=== PATIENT | female | born 1985 ===

== ENCOUNTER 2024-02-09 10:38 | Outpatient (AMB) | payer OTHER, SELFPAY ==
--- NOTE | 2024-02-09 10:48 | MHC.OFFVIS ---
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 She reports the pain is in the middle of her back, she denies any injury. She has completed physical therapy in the past, it did not help much. She has a daughter in law here named Aiyana who she would prefer to interpret. Red Mud Thickener Operator Required: Yes Red Mud Thickener Operator Services: Red Mud Thickener Operator Offered & Declined Allergies No Known Allergies Allergy (Verified 02/09/24 10:52) Medication List - Last Reconciled 02/09/24 by Betty Boswell, SALINA dapagliflozin propanediol (Farxiga) 5 mg PO DAILY metformin 1,000 mg PO BID metoprolol succinate ER 100 mg PO DAILY HPI Comments Details: Referred from [facility] for low back pain. History of CHF, diabetes, rheumatic mitral stenosis, fibroids. Lumbar x-ray essentially normal except for loss of lordosis. Here with daughter in law who helps with translation. After 4th child delivery, 2021, started having back pain. No back pain prior but had back pain during . Baby born CS 11 lbs, normal/healthy. Since then, would have pain daily, worse with walking. Middle of lower back, goes across, sometimes goes to left side as a cramp near the hip. Sometimes would feel heat/burning and numbness on the left side, with walking. No weakness. No bladder/bowel changes. Treatment done so far: cyclobenzaprine PT finished 3 months 2023 COUNT INCLUDES THE [facility] Medical History (Updated 02/09/24 @ 11:04 by Hina Glez MD) delivery delivered Surgical History (Updated 02/09/24 @ 10:52 by Betty Boswell RN) H/O tubal ligation Review of Systems Const All systems reviewed & are unremarkable except as noted in HPI and below Physical Exam Vital Signs: BMI result Body Mass Index 29.9 Constitutional: Patient appears to be in no acute distress, well nourished and well developed. Patient was appropriately conversant and oriented. Good historian. MSK: No specific abnormalities found on inspection of the spine and all extremities. No pain with palpation over the lumbar area. Right SI joint tender. Lumbar ROM was limited on extension due to pain. Bilateral hip, knee and ankle ROM WNL. No ligamentous laxity or crepitance. No increased effusion. Straight-leg raising test negative. FABERE test positive right sided back/SI joint pain. Gillet test show stiffness on right side. Strength is 5/5 in all muscle groups tested. No increased tone noted. Neurological: Neurologic examination of the upper and lower extremities was nonfocal with intact sensation, muscle stretch reflexes and without focal motor deficits . Pink?s negative bilaterally. Babinski was down going bilaterally. Clonus was negative. Gait is antalgic without loss of balance. Results Reviewed Results Reviewed: I reviewed records from the following: Lumbar x-ray done externally, essentially normal, reported loss of lordosis. Records from PCP reviewed. Assessment & Plan Assessment & Plan (1) Sacroiliac joint dysfunction of left side: Code(s): M53.3 - Sacrococcygeal disorders, not elsewhere classified Category: Medical Plan I suspect she started having SI joint dysfunction during which is common. She has undergone conservative management for SI joint pain/back pain, including PT and medications, without relief. It would be reasonable to trial SI joint injection. Patient is eager to proceed. Referral to pain management for the injection placed, patient understands that injection would be under them. Assessment and plan discussed with patient, and patient was agreeable. All questions were answered thoroughly. Follow up after injection. Hina Glez MD, NEGIN Board Certified, [place] [employer] and [employer] (ABPMR) Board Certified, [place] [employer] Electro[employer] (ABEM) Orders: Referrals Pain Management Referral M53.3 - Sacrococcygeal disorders, not elsewhere classified Coding Level of Care Code New Pt Level 4 (12611) Diagnoses Sacroiliac joint dysfunction of left side M53.3
[2024-02-09 10:55] VITALS: BMI 29.9
== END 2024-02-09 11:08 | disposition home or self-care (01) ==
LOC: HO.HOS 10:38
PROVIDERS: PCP Student in an Organized Health Care Education/Training Program; Visit Provider Physical Medicine & Rehabilitation
DX: M53.3 Sacrococcygeal disorders, not elsewhere classified (principal)
CPT/HCPCS: 99203

== ENCOUNTER → 2024-02-09 10:38 | Outpatient (BNVA) | payer OTHER, SELFPAY | PROVIDERS: PCP Student in an Organized Health Care Education/Training Program; Visit Provider Physical Medicine & Rehabilitation ==

== ENCOUNTER 2024-03-14 06:18 | Outpatient (REF) | payer OTHER, SELFPAY | END 2024-03-14 06:19 | disposition home or self-care (01) | LOC: CF 06:18 | PROVIDERS: Visit Provider Internal Medicine | DX: M53.3 Sacrococcygeal disorders, not elsewhere classified (principal) | CPT/HCPCS: 27096; J2003; J2795 ==

== ENCOUNTER 2024-03-14 11:05 | Outpatient (AMB) | payer OTHER, SELFPAY ==
[2024-03-14 11:21] VITALS: BP 142/72; PULSE 70; O2SAT 98
--- NOTE | 2024-03-14 11:21 | MHC.OFFVIS ---
Vital Signs 03/14/24 11:21 03/14/24 11:49 BP 142/72 H 125/75 Blood Pressure Location Rt brachial Rt brachial Position Sitting Sitting Pulse 70 73 Pulse Source Pulse Oximeter Pulse Oximeter Pulse Oximetry (%) 98 98 Oxygen Delivery Method Room Air Room Air Intake Visit Reasons: LEFT DIAGNOSTIC SIJ INJECTION Allergies No Known Allergies Allergy (Verified 02/09/24 10:52) HPI HPI LEFT DIAGNOSTIC SIJ INJECTION: Details: Patient presents for scheduled procedure. Denies any recent cough, cold, infection, fever or other significant changes in medical history since last office visit. [facility] Medical History (Updated 02/09/24 @ 11:04 by Hina Glez MD) delivery delivered Surgical History (Updated 02/09/24 @ 10:52 by Betty Boswell RN) H/O tubal ligation Physical Exam Vital Signs: Last Vital Signs Pulse 73 03/14/24 11:49 BP 125/75 03/14/24 11:49 Pulse Ox 98 03/14/24 11:49 Oxygen Delivery Method Room Air 03/14/24 11:49 Office Procedures AMB Joint Injection/Aspiration Joint Injection/Aspiration Details: Diagnostic Sacroiliac Joint Injection, Left The procedure, its benefits, and its risks were explained and written informed consent was obtained from the patient. Immediately prior to starting the procedure, a time-out safety check was conducted. The patient's identification, procedure name, procedure site, and procedure laterality were confirmed with the patient. ? Patient was placed prone on the fluoroscopy table and the lumbosacral area was prepped using ChloraPrep and draped with sterile drapein standard fashion. The C-arm was rotated in a contralateral oblique fashion until the medial border of the iliac crest no longer foreshadowed the posterior sacroiliac joint line. The skin and subcutaneous tissue was anesthetized using 1 mL of 0.75% plain lidocaine with 1.5-inch 25-gauge needle in the middle region of the joint line.? A 3.5-inch 22-gauge spinal needle with small bend on the tip was slowly advanced towards the joint line, coaxial to the x-ray beam. Once bony content was obtained, the needle was easily slid into the intra-articular space.? Intra-articular needle position was confirmed using lateral fluoroscopy.? A total volume of 2.5mL 0.5% of ropivacaine was injected intra-articularly. The stylet was reinserted and needle was removed. The patient tolerated the procedure well. Patient denied any lower extremity weakness or numbness. Patient was observed for 30 min and was discharged after fulfilling the standard discharge criteria. Coding 57295 - Sacroiliac Procedure code (CPT) selection complete Assessment & Plan Assessment & Plan (1) Sacroiliac joint dysfunction of left side: Code(s): M53.3 - Sacrococcygeal disorders, not elsewhere classified Category: Medical Plan Patient is status post left SIJ diagnostic injection. Patient tolerated procedure well and was discharged home in stable condition with discharge instructions. All questions were answered. We will follow-up via telephone or in clinic to assess response to therapy. A follow-up appointment was made during today's visit. Orders: Orders FL guidance in treatment room 03/14/24 M53.3 - Sacrococcygeal disorders, not elsewhere classified Coding Level of Care Code Procedure Only Diagnoses Sacroiliac joint dysfunction of left side M53.3 CPT Codes Coding - Joint 9: 95325 - Sacroiliac ([id number])
[2024-03-14 11:49] VITALS: BP 125/75; PULSE 73; O2SAT 98
== END 2024-03-14 11:50 | disposition home or self-care (01) ==
LOC: HO.PMCPRC 11:05
PROVIDERS: PCP Student in an Organized Health Care Education/Training Program; Visit Provider Internal Medicine
DX: M53.3 Sacrococcygeal disorders, not elsewhere classified (principal)
CPT/HCPCS: 27096

== ENCOUNTER 2024-03-22 08:33 | Outpatient (AMB) | payer OTHER, MEDICAID, SELFPAY ==
--- NOTE | 2024-03-22 08:38 | A.OFFVIS_ITS ---
Vital Signs 03/22/24 08:39 Height 5 ft 6 in Weight 188 lb BMI 30.3 BP 126/67 Blood Pressure Location Lt brachial Position Sitting Respiration 15 Pulse 85 Pulse Source Pulse Oximeter Pulse Oximetry (%) 97 Oxygen Delivery Method Room Air Intake Visit Reasons: s/p left SIJ Back Filler Operator Required: Yes Back Filler Operator Name: [id number] Nash Allergies No Known Allergies Allergy (Verified 03/22/24 08:40) Medication List - Last Reconciled 03/22/24 by Lamar Urbina LPN dapagliflozin propanediol (Farxiga) 5 mg PO DAILY metformin 1,000 mg PO BID metoprolol succinate ER 100 mg PO DAILY HPI HPI s/p left SIJ: Details: 38-year-old female who presents today to the office for a status post left sacroiliac joint injection. A certified mc kay machine operator was present during the visit. The patient reports 100% relief following the procedure for about four days. She had excellent response from the injections for four days without any pain with?return?of?symptoms?afterwards. She is amenable to proceed with next round of injection. She has no questions today. Past procedures 03/14/24: Diagnostic Sacroiliac Joint Injection, Left: 100% relief for four days. [facility] Medical History (Updated 02/09/24 @ 11:04 by Hina Glez MD) delivery delivered Surgical History (Updated 02/09/24 @ 10:52 by Betty Boswell RN) H/O tubal ligation Review of Systems Const All systems reviewed & are unremarkable except as noted in HPI and below Physical Exam Vital Signs: Last Vital Signs Pulse 85 03/22/24 08:39 Resp 15 03/22/24 08:39 BP 126/67 03/22/24 08:39 Pulse Ox 97 03/22/24 08:39 Oxygen Delivery Method Room Air 03/22/24 08:39 BMI result Body Mass Index 30.3 General: Appears afebrile. Alert and oriented. Mood and affect appropriate. Follows and participates in conversation appropriately. Respiratory effort is unlabored. Able to transition from sit to stand unassisted. Ambulates with bilaterally normal heel strike and toe off. Results Reviewed Results Reviewed: No imaging is available for review. Assessment & Plan Assessment & Plan (1) Sacroiliac joint dysfunction of left side: Code(s): M53.3 - Sacrococcygeal disorders, not elsewhere classified Category: Medical Plan She is interested in proceeding with therapeutic sacroiliac joint injection. So, we will schedule her for left therapeutic sacroiliac joint injection. Discussed the risks and benefits of the procedure with the patient in detail. All questions were answered. The patient is on board with the plan. Justification for interventional therapy: ? Patient with average pain > 6/10 ? Patient has exhausted conservative therapy. ? Previous injection provided >100% relief x four days . Patient has a good understanding of their pain condition and has appropriate mental and social support. Scribed for Dr. Seaman by Jayesh Holguin, program medical director, on 03/22/2024. I, Dr. Seaman, have personally reviewed and agree with the information entered by the scribe. Coding Level of Care Code Est Pt Level 3 (79224) Diagnoses Sacroiliac joint dysfunction of left side M53.3
[2024-03-22 08:39] VITALS: BP 126/67; PULSE 85; RESP 15; O2SAT 97; BMI 30.3
== END 2024-03-22 09:05 | disposition home or self-care (01) ==
PROVIDERS: PCP Student in an Organized Health Care Education/Training Program; Visit Provider Internal Medicine
DX: M53.3 Sacrococcygeal disorders, not elsewhere classified (principal)
CPT/HCPCS: 99213

== ENCOUNTER 2024-04-11 07:36 | Outpatient (REF) | payer OTHER, MEDICAID, SELFPAY ==
--- NOTE | ~2024-04-11 | FL_ITS ---
EXAMINATION: FLUOROSCOPY GUIDANCE FOR NEEDLE PLACEMENT CLINICAL INFORMATION: M53.3 - Sacrococcygeal disorders, not elsewhere classified COMPARISON: None available. TECHNIQUE: Intraoperative fluoroscopy lumbar region, 2 images obtained. FINDINGS: Nondiagnostic intraoperative fluoroscopy guidance, lumbar region. Physician present. Patient in prone position. FLUOROSCOPY TIME: 0.1 minutes. DOSE AREA PRODUCT: 2.36 uGy-m2 (microgray-meter squared) FL/FL guidance in treatment room IMPRESSION: Intraoperative fluoroscopy guidance in the lumbar region. Electronically signed by: Ten Davidson MD 04/24/2024 01:39 PM JOSE D
== END 2024-04-11 07:37 | disposition home or self-care (01) ==
LOC: CF 07:36
PROVIDERS: Visit Provider Internal Medicine
DX: M53.3 Sacrococcygeal disorders, not elsewhere classified (principal)
CPT/HCPCS: 27096; J2003; J2795; J3301

== ENCOUNTER 2024-04-11 10:59 | Outpatient (AMB) | payer OTHER, MEDICAID, SELFPAY ==
--- NOTE | 2024-04-11 11:28 | A.OFFVIS_ITS ---
Vital Signs 04/11/24 11:33 04/11/24 12:06 BP 123/63 132/63 Blood Pressure Location Lt brachial Lt brachial Position Sitting Sitting Pulse 79 80 Pulse Source Pulse Oximeter Pulse Oximeter Pulse Oximetry (%) 98 98 Oxygen Delivery Method Room Air Room Air Intake Visit Reasons: Left theraputic SIJ inj Allergies No Known Allergies Allergy (Verified 03/22/24 08:40) HPI HPI Left theraputic SIJ inj: Details: Patient presents for scheduled procedure. Denies any recent cough, cold, infection, fever or other significant changes in medical history since last of fice visit. COUNT INCLUDES THE [facility] Medical History (Updated 02/09/24 @ 11:04 by Hina Glez MD) delivery delivered Surgical History (Updated 02/09/24 @ 10:52 by Betty Boswell RN) H/O tubal ligation Physical Exam Vital Signs: Last Vital Signs Pulse 80 04/11/24 12:06 BP 132/63 04/11/24 12:06 Pulse Ox 98 04/11/24 12:06 Oxygen Delivery Method Room Air 04/11/24 12:06 Office Procedures AMB Joint Injection/Aspiration Joint Injection/Aspiration Details: Sacroiliac Joint Injection, Left The procedure, its benefits, and its risks were explained and written informed consent was obtained from the patient. Immediately prior to starting the procedure, a time-out safety check was conducted. The patient's identification, procedure name, procedure site, and procedure laterality were confirmed with the patient. ? Patient was placed prone on the fluoroscopy table and the lumbosacral area was prepped using ChloraPrep and draped with sterile drapein standard fashion. The C-arm was rotated in a contralateral oblique fashion until the medial border of the iliac crest no longer foreshadowed the posterior sacroiliac joint line. The skin and subcutaneous tissue was anesthetized using 1 mL of 0.75% plain lidocaine with 1.5-inch 25-gauge needle in the middle region of the joint line. A 3.5-inch 22-gauge spinal needle with small bend on the tip was slowly advanced towards the joint line, coaxial to the x-ray beam. Once bony content was obtained, the needle was easily slid into the intra-articular space.?Intra- articular needle position was confirmed using lateral fluoroscopy.? A total volume of 2.5mL of solution containing 40 mg Triamcinilone and rest 0.5% of ropivacaine was injected intra-articularly. The stylet was reinserted and needle was removed. The patient tolerated the procedure well. Patient denied any lower extremity weakness or numbness. Patient was observed for 30 min and was discharged after fulfilling the standard discharge criteria. Coding 55871 - Sacroiliac Procedure code (CPT) selection complete Assessment & Plan Assessment & Plan (1) Sacroiliac joint dysfunction of left side: Code(s): M53.3 - Sacrococcygeal disorders, not elsewhere classified Category: Medical Plan Patient is status post left SIJ injection. Patient tolerated procedure well and was discharged home in stable condition with discharge instructions. All questions were answered. We will follow-up via telephone or in clinic to assess response to therapy. A follow-up appointment was made during today's visit. Orders: Orders FL guidance in treatment room Today M53.3 - Sacrococcygeal disorders, not elsewhere classified Coding Level of Care Code Procedure Only Diagnoses Sacroiliac joint dysfunction of left side M53.3 CPT Codes Coding - Joint 9: 29609 - Sacroiliac ([id number])
[2024-04-11 11:33] VITALS: BP 123/63; PULSE 79; O2SAT 98
[2024-04-11 12:06] VITALS: BP 132/63; PULSE 80; O2SAT 98
== END 2024-04-11 12:07 | disposition home or self-care (01) ==
LOC: HO.PMCPRC 10:59
PROVIDERS: PCP Student in an Organized Health Care Education/Training Program; Visit Provider Internal Medicine
DX: M53.3 Sacrococcygeal disorders, not elsewhere classified (principal)
CPT/HCPCS: 27096

== ENCOUNTER 2024-05-08 11:02 | Outpatient (AMB) | payer OTHER, MEDICAID, SELFPAY ==
--- NOTE | 2024-05-08 11:04 | MHC.OFFVIS ---
Vital Signs 05/08/24 11:05 Height 5 ft 6 in Weight 191 lb BMI 30.8 BP 133/66 Blood Pressure Location Lt brachial Position Sitting Respiration 16 Pulse 82 Pulse Source Pulse Oximeter Pulse Oximetry (%) 95 Oxygen Delivery Method Room Air Intake Visit Reasons: s/p left theraputic SIJ inj Product Promoter Sales Person Required: Yes Product Promoter Sales Person Services: Product Promoter Sales Person Present Product Promoter Sales Person Name: [id number] Vitor Allergies No Known Allergies Allergy (Verified 05/08/24 11:08) Medication List - Last Reconciled 05/08/24 by Lamar Urbina LPN dapagliflozin propanediol (Farxiga) 5 mg PO DAILY metformin 1,000 mg PO BID metoprolol succinate ER 100 mg PO DAILY HPI HPI s/p left theraputic SIJ inj: Details: History of Present Illness The patient is a 38-year-old female presenting with left sacroiliac joint pain. The pain has been persistent, prompting the decision for a therapeutic injection. The patient underwent a sacroiliac joint injection on the left side, which has resulted in excellent relief. She reports 100% improvement since the procedure, indicating significant alleviation of symptoms post-treatment. The timeline of her pain and progression to the current state were not extensively discussed beyond this follow-up assessment. Pain Description - Onset: Specific onset not detailed - Primary Location: Left sacroiliac joint - Relief: 100% relief post-injection - No exacerbating factors mentioned - Treatment: Left sacroiliac joint injection - Activities: Pain-free since injection Physical Exam Appears afebrile. Alert and oriented. Mood and affect appropriate. Follows and participates in conversation appropriately. Respiratory effort is unlabored. Able to transition from sit to stand unassisted. Ambulates with bilaterally normal heel strike and toe off. Able to stand and walk on toes and heels. Pain Management - Analgesia: 100% pain relief following the sacroiliac joint injection - Activities of Daily Living: Pain-free, with no restrictions on daily activity reported - Affect, Adverse Effects, Aberrant Drug Related Behaviors: Not discussed [facility] Medical History (Updated 02/09/24 @ 11:04 by Hina Glez MD) delivery delivered Surgical History (Updated 02/09/24 @ 10:52 by Betty Boswell RN) H/O tubal ligation Physical Exam Vital Signs: Last Vital Signs Pulse 82 05/08/24 11:05 Resp 16 05/08/24 11:05 BP 133/66 05/08/24 11:05 Pulse Ox 95 05/08/24 11:05 Oxygen Delivery Method Room Air 05/08/24 11:05 BMI result Body Mass Index 30.8 Assessment & Plan Assessment & Plan (1) Sacroiliac joint dysfunction of left side: Code(s): M53.3 - Sacrococcygeal disorders, not elsewhere classified Category: Medical Plan Plan - Monitor the duration of relief post-injection and provide a repeat injection if pain recurs Patient was informed and verbally consented to the use of an ambient scribe for clinic note documentation during this visit. Discussion Notes I discussed with the patient that she has achieved complete relief of her left sacroiliac joint pain following the injection. We reviewed that she should observe the duration of relief experienced and contact the clinic if her pain recurs to consider a repeat injection. We concluded that there is no immediate need for further intervention unless symptoms return. Patient Instructions - Monitor the duration of relief from the pain - Contact the clinic if pain recurs for a possible repeat injection - No further intervention is needed until symptoms reappear Coding Level of Care Code Est Pt Level 2 (62337) Diagnoses Sacroiliac joint dysfunction of left side M53.3
[2024-05-08 11:05] VITALS: BP 133/66; PULSE 82; RESP 16; O2SAT 95; BMI 30.8
--- OUTSIDE RECORDS SUMMARY | 2024-05-08 13:20 | XMS_ITS | Encounter Summary ---
Author Organization [facility] Address [address] [place] [address] Care Team Providers Care Potato Spotter Name Role Phone Anjali Dunne Primary Care Provider [phone] Encounter Details Date Type Department Care Team (Latest Contact Info) Description 04/22/2024 Travel Social History Tobacco Use Types Packs/Day Years Used Date Smoking Tobacco: Never Passive Smoke Exposure: Never Smokeless Tobacco: Never Alcohol Use Standard Drinks/Week Comments Not Currently 0 (1 standard drink = 0.6 oz pur e alcohol) Social Connections Answer Date Recorded Connectedness 1 01/03/2024 Financial Resource Strain Answer Date R ecorded Financial Resource Strain 1 2023 Stress Answer Date Recorded Stress 1 01/03/2024 Physical Activity Answer Date Recorded Physical Activity 0 11/04/2020 Food Insecurity Answer Date Recorded Food 1 01/03/2024 Transportation Needs Answer Date Record ed Transportation 1 01/03/2024 Housing Stability Answer Date Recorded Housing 1 01/03/2024 Safety and Environment Answer Date Irving rded Safety 1 10/25/2023 Utilities Answer Date Recorded Utilities 1 01/03/2024 Employment Answer Date Recorded Stress 0 06/28/2021 Comments No Sex and Gender Information Value Date Recorded Sex Assigned at Female 11/04/2020 11:35 AM PDT Legal Sex Female 11:07 AM PDT Gender Identity Female 11/04/2020 11:35 AM PDT Sexual Orientation Straight 11/04/2020 11 :35 AM PDT COVID-19 Exposure Response Date Recorded In the last 10 days, have yo u been in contact with someone who was confirmed or suspected to have Coronavirus/COVID-19? No / Unsure 04/22/2024 10:24 AM EST documented as of this encounter Plan of Treatment Upcoming Encounters Date Type Department Care Team ( st Contact Info) Description 05/13/2024 1:40 PM EST Office Visit [facility] [address] [place] [phone] Von Andres, DDS [address] [place] [address] 05/17/2024 10:40 AM EST Office Visit [address] [phone] Tim Leos, DDS [address] [place] [address] 05/20/2024 1:20 PM EST Office Visit [address] [phone] Nash Ghosh, PharmD [address] [place] [address] 05/21/2024 1:20 PM EST Office Visit [facility] [address] [place] [phone] Jermain Parry, RD [address] [place] [address] 08/30/2024 9:00 AM EDT Office Visit [address] [phone] Zoran Castro, RD [address] [place] [address] documented as of this encounter Visit Diagnoses Not on filedocumented in this encounter Additional Health Concerns Assessment Noted Time PHQ-9 Depression Total Score: 0 10/25/19 24 1:11 PM PDT documented as of this encounter Care Teams Potato Spotter Relationship Specialty Start Date End Date Anjali Dunne PA [address] [place] [id number] PCP - General Primary Care 03/20/23 documented as of this encounter
--- OUTSIDE RECORDS SUMMARY | 2024-05-08 13:20 | XMS_ITS | Encounter Summary ---
Author Organization [facility] Address [address] [place] [address] Care Team Providers Care Body Piercer Name Role Phone Anjali Dunne Primary Care Provider [phone] Reason for Visit * Reason Comments Diabetes Mellitus 38yr old female DM f /u Encounter Details Date Type Department Care Team ([facility] st Contact Info) Description 04/15/2024 1:20 PM EST Office Visit [facility] [address] [place] [address] Nash Ghosh, PharmD [address] [place], [place] [id number] Type 2 diabetes mellitus with hyperglycemia, without long-term current use of insulin ([facility]) (Primary Dx); Class 1 obesity due to excess calories with serious comorbidity and body mass index (BMI) of 34.0 to 34.9 in adult Social History Tobacco Use Types Packs/Day Years [...] suspected to have Coronavirus/COVID-19? No / Unsure 04/15/2024 1:14 PM EST documented as of this encounter Last Filed Vital Signs Vital Sign Reading Time Taken Comments Blood Pressure 120/80 04/15/2024 1:27 PM EST Pulse 96 04/15/2024 1:27 PM EST Temperature 36.6 ??C (97.8 ??F) 04/15/2024 1:27 PM ES T Respiratory Rate 18 04/15/2024 1:27 PM EST Oxygen Saturation 99% 04/15/2024 1:27 PM EST Inhaled Oxygen Concentration - - Weight 87.1 kg (192 lb) 04/15/2024 1:27 PM EST Height 160 cm (5' 3 ) 04/15/2024 1:27 PM EST Body Mass Index 34.01 04/15/2024 1:27 PM EST documented in this encounter Progress Notes * Nash Soares, PharmD - 04/15/2024 1:26 PM EST Anay Rocha is a 38 year old, Danish-speaking female who presents today for a follow-up visit in [facility] with Nash Ingram, LanreD. Referred by Verona Berkowitz PA-C. No hide and skin fleshing machine operator needed for today's visit as provider speaks patient's familiar language. Subjective: Patient reports: Denies use of glucometer due to losing it while moving. Endorses adherence to metformin. Reports that she has been out of Trulicity and Farxiga for 3 weeks. Patient has not picked up refills, believes that she needs appt every time her medications run out. Polydipsia/polyphagia/polyuria? No Reports experiencing yeast infections and UTIs. Denies signs/symptoms of hypoglycemia. Changes in diet: denies recent changes, not following carb controlled diet Changes in physical activity: denies recent changes, sedentary lifestyle BG noted to be elevated at 371 mg/dL. New concerns: No concerns Tobacco Use: Never Smoker Alcohol Use: No alcohol use Additional OTC medications or supplements: none Specialists managing DM/HTN: Cardiology (Location: [facility], no recent notes on file) Diabetes Current Diabetes RX: metformin 1,000 mg BID Farxiga 10 mg daily Trulicity 0.75 mg weekly Objective: BGM Metrics: Not available due to lack of possession. Allergies reviewed: No Known Allergies BP 120/80 (Left Arm, Sitting, Large Adult) Pulse 96 Temp 97.8 ??F (36.6 ??C) Resp 18 Ht 5' 3 (1.6 m) Wt 192 lb (87.1 kg) LMP 03/23/2024 (Exact Date) SpO2 99% BMI 34.01 kg/m?? OB Status Having periods Smoking Status Never BSA 1.97 m?? Estimated Creatinine Clearance: 108.4 mL/min (by C-G formula based on SCr of 0.75 mg/dL). Last 3 BP Readings: Date: BP: 04/15/2024 120/80 03/28/2024 119/70 03/25/2024 116/66 Wt Readings from Last 3 Encounters: 04/15/24 192 lb (87.1 kg) 02/12/24 185 lb (83.9 kg) 01/25/24 190 lb (86.2 kg) Lab Results Component Value Date HGBA1C 10.2 (H) 01/03/2024 HGBA1C 9.2 (H) 04/28/2023 HGBA1C 8.0 (H) 11/01/2022 Lab Results Component Value Date GLUCOSE 371 (A) 04/15/2024 EAG 5.8 11/05/2020 Lab Results Component Value Date URALBCREAT 5 01/03/2024 Lab Results Component Value Date VITB12 393 11/01/2022 FOLATE 13.3 11/01/2022 Lab Results Component Value Date NA 132 (L) 01/03/2024 K 5.3 01/03/2024 BUN 11 01/03/2024 BUNCREAT SEE NOTE: 01/03/2024 CREATININE 0.75 01/03/2024 EGFR 104 01/03/2024 Lab Results Component Value Date TSH 0.51 11/05/2020 Lab Results Component Value Date TRIGLYC 136 01/03/2024 CHOL 230 (H) 01/03/2024 HDL 52 01/03/2024 LDL 152 (H) 01/03/2024 CHOLHDL 4.4 01/03/2024 NONHDL 178 (H) 01/03/2024 The ASCVD Risk score (Tree DK, et al., 2019) failed to calculate for the following reasons: The 2019 ASCVD risk score is only valid for ages 40 to 79 Assessment: Diabetes: Need updated A1c, Lack of SMBG ASCVD: Age 20-39 yo, DM, no ASCVD on moderate-intensity statin = continue current statin recommended based on lipid panel Plan: E11.65 Type 2 diabetes mellitus with hyperglycemia, without long-term current use of insulin ([facility]) (primary encounter diagnosis) Plan : HGBA1C W/MPG GLUCOSE, BLOOD BY GLUCOSE MONITORING DEVICE (CLIA WAIVED)POCT TRULICITY 0.75 MG/0.5 ML SUBCUTANEOUS PEN INJECTOR - Inject 0.75 mg into the skin once a week INSULIN GLARGINE (U-100) 100 UNIT/ML (3 ML) SUBCUTANEOUS PEN - Inject 10 Units into the skin nightly at bedtime PEN NEEDLE, DIABETIC 31 GAUGE X 5/16 - USE TO INJECT INSULIN DAILY BLOOD-GLUCOSE METER KIT - Use to test blood glucose BID. (Freestyle Lite). ALCOHOL SWABS - Use to test blood glucose BID PHARMACOTHERAPY for diabetes Updated A1c ordered. SMBG very elevated, will initiate Lantus 10 units QHS for enhanced BG control.Will discontinue Farxiga to avoid yeast infections due to elevated BG. Continue metformin 1,000 mg BID,Trulicity 0.75 mg weekly. Counseled patient on how refills work and to brass pickler medications at pharmacy monthly. Counseled patient on the following diet and lifestyle modifications (weight loss, decrease carbohydrates such as rice, bread, pasta and corn meal, increase non-starchy vegetables, no potatoes or corn, and increase physical activity with at least 150 minutes of moderate physical activity per week) New BG monitor ordered. E66.811,E66.09,Z68.34 Class 1 obesity due to excess calories with serious comorbidity and body massindex (BMI) of 34.0 to 34.9 in adult Obesity Lifestyle measures:BMI follow up plan: The patient was counseled regarding nutrition and physical activity. Counseled patient on importance of diet and lifestyle (weight loss, decrease carbohydrates such as rice, bread, pasta and corn meal, increase non-starchy vegetables, no potatoes or corn, and increase physical activity with at least 150 minutes of moderate physical activity per week). ASCVD: Per 2023 ADA guidelines for lipid management, continue moderate-intensity statin: atorvastatin 20 mg daily Referral: None Follow-Up: 1 month Patient agrees with plan of care and verbalizes understanding. Questions were answered. Education: Labs due (A1c) - will review results and determine best therapy Medication Regimen: (indication, dosage, administration, storage, ADR, missing dose) BG testing and target/Alternate Site Testing Focus on consuming carbohydrates from high-fiber sources like whole grains, legumes, and fruits in controlled portions to help manage blood sugar levels, and aim to fill half your plate with non-starchy vegetables like leafy greens, broccoli, or peppers for added nutrients and fiber. Avoid sugary beverages like soda and limit sweets to special occasions, choosing healthier alternatives such as water, unsweetened tea, or low-calorie drinks to minimize blood sugar spikes Incorporate at least 150 minutes of moderate physical activity per week, such as brisk walking or cycling, to improve insulin sensitivity, enhance glucose control, and support overall cardiovascular health. Sign / Symptoms of Hyperglycemia / Hypoglycemia Hypoglycemia Treatment (Rule 15) Shelter Complications Uncontrolled Diabetes Nash Ingram PharmD documented in this encounter Miscellaneous Notes * Patient Instructions - Nash Soares PharmD - 04/15/2024 1:45 PM EST If you are not able to keep your appointment please call 24-48 hours before your appointment to cancel or reschedule. Nash Ingram PharmD, Replaced by [facility]/Clinical Pharmacist ext. [phone] documented in this encounter Plan of Treatment Upcoming Encounters Date Type Department Care Team (Late st Contact Info) Description 05/13/2024 1:40 PM EST Office Visit [facility] [address] [place] [phone] Von Andres, DDS [address] [place] [address] 05/17/2024 10:40 AM EST Office Visit [facility] [address] [place] [phone] Tim Leos, DDS [address] [place] [address] 05/20/2024 1:20 PM EST Office Visit [address] [phone] Nash Ghosh, PharmD [address] [place] [address] 05/21/2024 1:20 PM EST Office Visit [address] [phone] Jermain Parry, RD [address] [place] [address] 08/30/2024 9:00 AM EDT Office Visit [facility] [address] [place] [phone] Zoran Castro, RD [address] [place] [address] Scheduled Orders Name Type Priority Associated Diagnoses Orde r Schedule HGBA1C W/MPG Lab Routine Type 2 diabetes mellitus with hyperglycemia, without long-term current use of insulin ([facility]) Ordered: 04/15/2024 documented as of this encounter Procedures Procedure Name Priority Date/Time Associated Diagnosis Comments GLUCOSE, BLOOD BY GLUCOSE MONITORING DEVICE (CLIA WAIVED)POCT Routine 04/15/2024 1:30 PM EST Type 2 diabetes mellitus with hyperglycemia, without long-term current use of insulin ([facility]) documented in this encounter Results * (ABNORMAL) GLUCOSE, BLOOD BY GLUCOSE MONITORING DEVICE (CLIA WAIVED)POCT (04/15/2024 1:30 PM EST) GLUCOSE 371(A) 70 - 100 mg/dL [facility] POCT Capillary Blood Blood / Unknown 1:30 PM EST Nash Soares PharmD LAB - BLOOD D RAW Final Result [facility] OFFICE POCT documented in this encounter Visit Diagnoses Diagnosis Type 2 diabetes mellitus with hyperglycemia, without long-term current use of insulin ([facility])- Primary Class 1 obesity due to excess calories with serious comorbidity and body mass index (BMI) of 34.0 to 34.9 in adult documented in this encounter Additional Health Concerns Assessment Noted Time PHQ-9 Depression Total Score: 0 10/25/19 24 1:11 PM PDT documented as of this encounter Care Teams Body Piercer Relationship Specialty Start Date End Date Anjali Dunne PA [facility] [place] [address] PCP - General Primary Care 03/20/23 documented as of this encounter
--- OUTSIDE RECORDS SUMMARY | 2024-05-08 13:20 | XMS_ITS | Encounter Summary ---
Author Organization [facility] Address [address] [place] [address] Care Team Providers Care Television Operator Name Role Phone Anjali Dunne Primary Care Provider [phone] Encounter Details Date Type Department Care Team (Late st Contact Info) Description 05/02/2024 3:00 PM EST Office Visit [facility] [address] [place] [phone] Tim Leos DDS [address] [place] [address] Fracture of crown, enamel, and dentin of tooth with pulp exposure (Primary Dx) Social History Tobacco Use Types Packs/Day Years [...] Recorded In the last 10 days, have madie noonan been in contact with someone who was confirmed or suspected to have Coronavirus/COVID-19? No / Unsure 04/22/2024 10:24 AM EST documented as of this encounter Progress Notes * Tim Leos DDS - 05/02/2024 3:38 PM EST Dental Extraction Subjective Anay Rocha, 38 year old female, presents alone for extraction. 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 Time-out completed: Yes Dental procedures in this visit [id number] - EXTRACTION ERUPTED TOOTH OR EXPOSED ROOT 13 (Completed) Service provider: Tim Leos DDS Billing provider: Tim Leos DDS [id number] - CASE PRESENTATION SUBS DTL & EXTENSIVE TX PLN (Completed) Service provider: Tim Leos DDS Billing provider: Tim Leos DDS Topical Anesthetic: 20% topical benzocaine Local Anesthetic: 2 carpule 4% articaine (Septocaine) with 1:100k epi Injection administered: MSA, Palatal Extraction(s) completed with periosteal, elevator, forceps, envelope flap, socket irrigated, socketcurretted, hemostasis obtained, gauze pressure, confirmed roots in tact and socket clear, no complications Post-Op Information Given: written & verbal Pain Management: OTC Acetaminophen 500mg q6h Referral: No orders of the following type(s) were placed in this encounter: Referral. Rx: No orders of the defined types were placed in this encounter. Behavior: Excellent DA: Shoshana NV: restorations documented in this encounter Miscellaneous Notes * Patient Instructions - Shoshana Coto - 05/02/2024 3:28 PM EST If you are not able to keep your appointment please call 24-48 hours before your appointment to cancel or reschedule. documented in this encounter Plan of Treatment Upcoming Encounters Date Type Department Care Team (Late st Contact Info) Description 05/13/2024 1:40 PM EST Office Visit [address] [phone] Von Andres, S [address] [place] [address] 05/17/2024 10:40 AM EST Office Visit [address] [phone] Tim Leos, S [address] [place] [address] 05/20/2024 1:20 PM EST Office Visit [address] [phone] Nash Ghosh, PharmD [address] [place] [address] 05/21/2024 1:20 PM EST Office Visit [address] [phone] Jermain Parry, RD [address] [place] [address] 08/30/2024 9:00 AM EDT Office Visit [address] [phone] Zoran Castro, [facility] [address] [place] [address] documented as of this encounter Procedures Procedure Name Priority Date/Time Associated Diagnosis Comments CASE PRESENTATION SUBS DTL & EXTENSIVE TX PLN Routine 05/02/2024 3:00 PM EST Fracture of crown, enamel, and dentin of tooth with pulp exposure 13 EXTRACTION ERUPTED TOOTH OR EXPOSED ROOT Routine 05/02/2024 3:00 PM EST Fracture of crown, enamel, and dentin of tooth with pulp exposure documented in this encounter Visit Diagnoses Diagnosis Fracture of crown, enamel, and dentin of tooth with pulp exposure- Primary documented in this encounter Additional Health Concerns Assessment Noted Time PHQ-9 Depression Total Score: 0 10/25/19 24 1:11 PM PDT documented as of this encounter Care Teams Television Operator Relationship Specialty Start Date End Date Anjali Dunne PA [address] [place] [address] PCP - General Primary Care 03/20/23 documented as of this encounter
--- OUTSIDE RECORDS SUMMARY | 2024-05-08 13:20 | XMS_ITS | Encounter Summary ---
Author Organization [facility] Address [address] [place] [address] Care Team Providers Care Bail Bondsman Name Role Phone Anjali Dunne Primary Care Provider [phone] Encounter Details Date Type Department Care Team (Latest Contact Info) Description 04/15/2024 Travel Social History Tobacco Use Types Packs/Day [...] PM EST documented as of this encounter Plan of Treatment Upcoming Encounters Date Type Department Care Team (Late st Contact Info) Description 05/13/2024 1:40 PM EST Office Visit [facility] [address] [place] [phone] Von Andres, DDS [address] [place] [address] 05/17/2024 10:40 AM EST Office Visit [address] [phone] Tim Leos, DDS [address] [place] [address] 05/20/2024 1:20 PM EST Office Visit [address] [phone] Nash Ghosh, PharmD [address] [place] [address] 05/21/2024 1:20 PM EST Office Visit [facility] [address] [place] [phone] Jermain Parry, RD [address] [place] [address] 08/30/2024 9:00 AM EDT Office Visit [address] [phone] Zoran Castro, RD [address] [place] [address] documented as of this encounter Visit Diagnoses Not on filedocumented in this encounter Additional Health Concerns Assessment Noted Time PHQ-9 Depression Total Score: 0 10/25/19 24 1:11 PM PDT documented as of this encounter Care Teams Bail Bondsman Relationship Specialty Start Date End Date Anjali Dunne PA [address] [place] [address] PCP - General Primary Care 03/20/23 documented as of this encounter
--- OUTSIDE RECORDS SUMMARY | 2024-05-08 13:20 | XMS_ITS | Clinical Summary ---
Author Organization [facility] Address [address] [place] [address] Care Team Providers Care Hood Maker Name Role Phone Anjali Dunne Primary Care Provider [phone] Source Comments PLEASE NOTE, if this patient is a minor, it may be UNLAWFUL to discuss sensitive information that is contained in these records (such as FAMILY PLANNING, MENTAL HEALTH or SUBSTANCE ABUSE) with the minor patient's parent or other person without the patient's specific authorization.[facility] Allergies No known active allergies Medications metoprolol succinate XL (TOPROL XL) 100 mg 24 hr tablet Take 100 mg by mouth daily 09/01/19 [address] Active aspirin [address] tablet Take 1 Tablet by mouth once daily 90 Tablet 1 04/13/19 23 Active atorvastatin (LIPITOR) 20 mg tabletIndicati ons:Dyslipidem ia Take 1 Tablet by mouth once daily 90 Tablet 1 11/05/19 23 Active cyanocobalamin (VITAMIN B-12) 1,000 mcg tablet Take 1 Tablet by mouth once daily 90 Tablet 1 11/05/19 23 Active ferrous sulfate 325 mg (65 mg iron) tabletIndicati ons:Iron deficiency Take 1 Tablet by mouth once daily with breakfast 90 Tablet 05/01/19 24 Active FREESTYLE LITE STRIPS stripsIndicati ons:Type 2 diabetes mellitus with hyperglycemia, without long-term current use of insulin (HCC-CMS) Use to test BG twice daily 100 Each 06/23/19 24 Active FREESTYLE LANCETS 28 gaugeIndicatio ns:Type 2 diabetes mellitus with hyperglycemia, without long-term current use of insulin (HCC-CMS) Use to test BG twice daily 100 Each 06/23/19 24 Active naproxen (NAPROSYN) 250 mg tabletIndicati ons:Chronic bilateral low back pain without sciatica Take 1 Tablet by mouth 2 (two) times daily with a meal 180 Tablet 10/25/19 Active metFORMIN (GLUCOPHAGE) 500 mg tabletIndicati ons:Type 2 diabetes mellitus with hyperglycemia, without long-term current use of insulin ([facility]) Take 2 Tablets by mouth 2 (two) times daily with a meal 360 Tablet 1 01/03/20 Active cyclobenzaprin e (FLEXERIL) 5 mg tabletIndicati ons:Chronic bilateral low back pain without sciatica Take 1 Tablet by mouth 3 (three) times daily as needed for muscle spasms For muscle spasms 30 Tablet 01/25/20 Active budesonide-for moteroL (SYMBICORT) 160-4.5 mcg/actuation inhalerIndicat ions:SOB (shortness of breath) Inhale 2 Puffs into the lungs 2 (two) times daily 10.2 g 2 01/25/20 Active dulaglutide (TRULICITY) 0.75 mg/0.5 mL pen injectorIndica tions:Type 2 diabetes mellitus with hyperglycemia, without long-term current use of insulin ([facility]) Inject 0.75 mg into the skin once a week 2 mL 1 04/15/19 25 Active insulin glargine 100 unit/mL (3 mL) penIndications :Type 2 diabetes mellitus with hyperglycemia, without long-term current use of insulin ([facility]) Inject 10 Units into the skin nightly at bedtime 15 mL 1 04/15/19 25 Active pen needle, diabetic 31 gauge x 5/16 ndleIndication s:Type 2 diabetes mellitus with hyperglycemia, without long-term current use of insulin ([facility]) USE TO INJECT INSULIN DAILY 100 Each 1 04/15/19 25 Active blood-glucose meter monitoring kitIndications :Type 2 diabetes mellitus with hyperglycemia, without long-term current use of insulin ([facility]) Use to test blood glucose BID. (Freestyle Lite). 1 Each 04/15/19 25 Active alcohol swabsIndicatio ns:Type 2 diabetes mellitus with hyperglycemia, without long-term current use of insulin ([facility]) Use to test blood glucose BID 100 Each 3 04/15/19 25 Active VENTOLIN HFA 90 mcg/actuation inhalerIndicat ions:SOB (shortness of breath) USAR 2 INHALACIONES POR LA BOCA CADA 4 HORAS CUANDO SEA NECESARIO PARA JENIFER / FALTA DE ALIENTO/RESPIRA DWAYNE MCGUIRE 18 g 1 04/24/19 Active FREESTYLE LITE METER monitoring kit USE DIRECTED TO TEST BLOOD SUGAR 02/05/20 21 2024 Discontinued(D uplicate (E-Cancel Not Sent)) ALCOHOL PREP PADS USE FOUR TIMES A DAY TO TEST BLOOD SUGARS 02/09/20 21 2024 Discontinued(D uplicate (E-Cancel Not Sent)) medroxyPROGEST ERone (PROVERA) 10 mg tablet ENRIQUE 2 TABLETAS POR LA BOCA CADA LALITHA 07/23/19 23 2024 Discontinued(O utdated-Remove d from Med List (E-Cancel Not Sent)) dapagliflozin propanediol 10 mg tabIndications :Type 2 diabetes mellitus with hyperglycemia, without long-term current use of insulin ([facility]) Take 1 Tablet by mouth daily. Pls maintain adequate hydration 30 Tablet 3 01/03/20 24 2024 Discontinued(T herapy completed/Not needed) dulaglutide (TRULICITY) 0.75 mg/0.5 mL pen injectorIndica tions:Type 2 diabetes mellitus with hyperglycemia, without long-term current use of insulin ([facility]) Inject 0.75 mg into the skin once a week 2 mL 1 01/03/20 24 2024 Discontinued(R eorder (E-Cancel Not Sent)) albuterol HFA 90 mcg/actuation inhalerIndicat ions:SOB (shortness of breath) Inhale 2 Puffs into the lungs every 4 (four) hours as needed for shortness of breath or wheezing 18 g 1 01/25/20 24 2024 Discontinued Active Problems Problem Noted Date Diagnosed Date Primary stress urinary incontinence 05/03/2023 Assessment & Plan (09/11/2023 2:21 PM EDT): - Continued lifestyle changes: weight loss, increase H2O intake, decrease caffeine intake - Continue Kegel exercises/pelvic floor exercises - Reviewed bladder training - Reviewed Referral that was previously sent for pelvic floor PT: sent to [facility] - Follow-up in 3 months to assess progress Assessment & Plan (07/03/2023 12:29 PM EDT): - Discontinue Myrabetriq - Continued lifestyle changes: weight loss, increase H2O intake, decrease caffeine intake - Continue Kegel exercises/pelvic floor exercises - Reviewed bladder training - Reviewed [facility] that was [facility] - Follow-up in 2 months to assess progress Assessment & Plan (05/03/2023 11:55 AM EST): - Reviewed lifestyle changes: weight loss, increase H2O intake, decrease caffeine intake - Reviewed Kegel exercises/pelvic floor exercises - Reviewed bladder training - Referral sent for pelvic floor PT - Follow-up in 2 months to assess progress Dyslipidemia 07/21/2022 Hx of bilateral salpingectomy 07/20/2022 Class 2 severe obesity with serious comorbidity and body mass index (BMI) of 35.0 to 35.9 in adult ([facility]) 07/19/2022 Abnormal uterine bleeding (AUB) 07/19/2022 Overview (07/27/2022): [facility] TRAVELING SECRETARY 07/22/22 On evaluation, patient hemodynamically stable and is having bleeding but bleeding is not profuse. Discussed that at this time plan to treat current episodes of bleeding with provera 20mg daily. Discussed mechanism of action of provera and that if she stops it, she would have more bleeding. Discussed recommendation for US as she has a history of fibroids that maybe contributing to her heavy menses and for further evaluation of anatomical structures that may be causing AUB. Further discussed this could be due to a heavier menses secondary to anovulation though she does get regular menses and will further evaluate s/p US results. Reviewed warning signs with patient for when to call/return. All questions and concerns addressed, she agrees with plan. Abnormal uterine bleeding (AUB) (N93.9): provera 20mg daily - rx sent (p) US ordered (p) CBC, TSH ordered attempted to collect pap smear but unable to send due to blood; will repeat collection at next visit reviewed warning signs for when to call/return follow up for US results --> communication sent Type 2 diabetes mellitus without complication ([facility]) 07/19/2022 Fibroids 04/13/2022 Rheumatic mitral stenosis 04/13/2022 Overview (04/13/2022): 02/25/22: Pt seen at cardiology Assessment/Plan 1. Hx of valvuloplasty Rheumatic mitral stenosis S/p BMV 26 mm inoue balloon LA pressure 21 >> 17 mm hg MG 13 >> 6 mm hg MVA ~ 1.1 >>2 NYHA Class II PA pressure 43 mm hg. EKG : NSR with narrow complex. Significant LAE on ECHO Current cardiac medications: Toprol XL 100 mg daily 2. Dyspnea on exertion - now resolved. Normal chest x-ray and proBNP 3. Chronic asthma >> dry cough and nocturnal wheezing. Now seeing process description writer. 4. Palpitations. Ziopatch with occasional NSVT and a short run of SVT, otherwise unremarkable. Patient is a 36-year-old female who was recently diagnosed with rheumatic mitral stenosis after delivery of her child via . She presented to the hospital with grade 3 NYHA dyspnea secondary to worsening mitral stenosis. She successfully underwent balloon mitral valvuloplasty in the end of September. No significant improvement in the pressure gradients. Post procedure patient progressed. She was subsequently discharged home. She returns for follow-up after some dyspnea last visit. . She seems to be doing well from a cardiac standpoint. She has improved functional capacity. No heart failure or anginal symptoms. Plan: 1. Follow up with process description writer and PCP for non-cardiac issues 2. Follow-up in 1 year, earlier if needed 3. Advised follow up prior to any consideration of future , but pt stated she had surgical procedure to prevent future pregnancies and does not plan on being again. Per [facility] records rheumatic mitral stenosis status post mitral valvuloplasty in September 2021, mild intermittent asthma being followed by both pulmonology and cardiology Chronic heart failure with p reserved ejection fraction ([facility]) 04/13/2022 Overview (04/13/2022): See rheumatic mitral stenonsis SOB (shortness of breath) 04/28/2021 Overview (04/13/2022): 12/27/2021: seen at [facility] pulm Assessment/Plan Anay Rocha is a 36-year-old female with post with rheumatic mitral stenosis after recent via . Has undergone successful balloon mitral valvuloplasty in September presenting to pulmonary clinic in the setting of drug cough nocturnal wheeze and report of asthma history. 1. Report of asthma, current dyspnea worse in the evenings 2. Known heart failure preserved ejection fraction 3. Rheumatic valvular disease status post valvuloplasty with persistent mild to moderate stenosis and mild regurgitation 4. Elevated PASP of 43 on most recent echo 5. Abnormal CT imaging from July consistent likely with volume overload worse 6. Allergic rhinitis Anay's breathing is overall complex; I strongly suspect a large component of asthma that is currently uncontrolled and exacerbated by her post nasal drip and anxiety. In addition to this she does have complex cardiac history, obesity and deconditioning. Plan: -PFTs -Flonase BID -Initiate Symbicort, inhaler teaching with nurses today -Continue with cardiology management and decision making on whether diuretics would be assistive with significant orthopnea and report of LE edema -Sleep study (With complex history will likely need in lab) -CXR Discussed with attending physician Dr Rodríguez ASCUS with positive high risk HPV cervical 01/16 Overview (07/03/2023): [facility] TRA[facility]ELING SECRETARY 07/22/22 for AUB / [facility] ATYPICAL SQUAMOUS CELLS OF UNDETERMINED SIGNIFICANCE. Satisfactory for evaluation. Endocervical/transformation zone present. Human Papilloma Virus, High-Risk (Any Dx) Interpretation: POSITIVE July 2022: ASCUS/HR HPV+ September 2022: Colposcopy w cervical biopsies: KWASI 1. Plan: Follow-up pap w co- testing in 1 year Assessment & Plan (07/03/2023 12:03 PM EDT): - I reviewed the patient's dysplasia history; majority of which she states she was unaware or and/or does not remember - Due for repeat pap w co-testing in September 2023; will collect at next follow-up viist Resolved Problems Problem Noted Date Diagnosed Date Resolved Date Hemorrhage 04/13/2022 04/13/2022 History of recurrent urinary tract infection 3 07/27/2022 Obstetric risk in currently patient 3 04/13/2022 COVID-19 virus infection 08/16/202107/2022 Overview (08/16/2021): At 10 days . Complicated by pulmonary edema. Went to ER 07/2021 Insulin controlled gestation al diabetes mellitus (GDM) in second trimester 04/28/202104/13 Supervision of high-risk [O09.90] 04/28/2021 04/13/2022 Overview (04/28/2021): Seeing Dr. Buddy NUNES at [facility]. Encounters Date Type Department Care Team Description 05/02/2024 3:00 PM EST Office Visit [address] [phone] Tim Leos, DDS Fracture of crown, enamel, and dentin of tooth with pulp exposure (Primary Dx) 05/02/2024 2:00 PM EST Office Visit [address] [phone] Sadia Bailey, LON Vertical fracture of root of tooth (Primary Dx) 04/22/2024 11:00 AM EST Office Visit [address] [phone] Jermain Parry, MELISA Type 2 diabetes mellitus with hyperglycemia, with long-term current use of insulin ([facility]) (Primary Dx) 04/22/2024 Travel 04/15/2024 1:20 PM EST Office Visit [address] [phone] Nash Ghosh, PharmD Type 2 diabetes mellitus with hyperglycemia, without long-term current use of insulin (HCC-CMS) (Primary Dx); Class 1 obesity due to excess calories with serious comorbidity and body mass index (BMI) of 34.0 to 34.9 in adult 04/15/2024 Travel 03/28/2024 9:40 AM EST Office Visit [address] [phone] Von Andres DDS Caries (Primary Dx) 03/28/2024 Travel 03/25/2024 9:00 AM EST Office Visit [facility] [address] [place] [phone] Sadia Bailey, LON Symptomatic periapical periodontitis (Primary Dx) 03/25/2024 Travel 03/21/2024 9:40 AM EST Office Visit [facility] [address] [place] [phone] Von Andres DDS Caries (Primary Dx) 03/21/2024 Travel 02/27/2024 9:00 AM EST Office Visit [facility] [address] [place] [phone] Zoran Castro RDH Chronic gingivitis, plaque induced (Primary Dx) 02/27/2024 Travel 02/23/2024 1:00 PM EST Office Visit [facility] [address] [place] [phone] Von Andres DDS Encounter for dental examination (Primary Dx); Caries 02/23/2024 Travel 02/12/2024 10:40 AM EST Office Visit [facility] [address] [place] [phone] Class 1 obesity due to excess calories with serious comorbidity and body mass index (BMI) of 32.0 to 32.9 in adult (Primary Dx) 02/12/2024 Travel from Last 3 Months Immunizations Name Administration Dates Next Due Hep B,adult,adjuvanted (HEPLISAV) 11/01/2022 INFLUENZA, SEASONAL, INJECTABLE 02/05/2021 MMR (MMR II/Priorix) 11/09/2022 PFIZER COVID VACCINE, PURPLE CAP, 12+ 08/30/2020 ,08/09/2020 PNEUMOCOCCAL POLYSACCHARIDE PPV23 11/01/2022 TDAP 05/31/2021 Family History Medical History Relation Name Comments Pancreatic cancer Father Myocardial infarction Mother Relation Name Status Comments Father Mother Social History Tobacco Use Types Packs/Day Years [...] No / Unsure 04/22/2024 10:24 AM EST Last Filed Vital Signs Vital Sign Reading Time Taken Comments Blood Pressure 140/91 05/02/2024 2:21 PM EST Pulse 84 05/02/2024 2:21 PM EST Temperature 36.6 ??C (97.8 ??F) 04/15/2024 1:27 PM ES T Respiratory Rate 18 04/15/2024 1:27 PM EST Oxygen Saturation 99% 04/15/2024 1:27 PM EST Inhaled Oxygen Concentration - - Weight 86.6 kg (191 lb) 04/22/2024 11:00 AM EST Height 160 cm (5' 3 ) 04/22/2024 11:00 AM EST Body Mass Index 33.83 04/22/2024 11:00 AM EST Plan of Treatment Upcoming Encounters Date Type Department Care Team (Late st Contact Info) Description 05/13/2024 1:40 PM EST Office Visit [facility] [address] [place] [phone] Von Andres, MATA [address] [place] [address] 05/17/2024 10:40 AM EST Office Visit [facility] [address] [place] [phone] Tim Leos, DDS [address] [place] [address] 05/20/2024 1:20 PM EST Office Visit [facility] [address] [place] [phone] Nash Ghosh, PharmD [address] [place] [address] 05/21/2024 1:20 PM EST Office Visit [address] [phone] Jermian Parry, RD [address] [place] [address] 08/30/2024 9:00 AM EDT Office Visit [facility] [address] [place] [phone] Zoran Castro, RD [address] [place] [address] Health Maintenance Due Date Last Done Comments HPV Screening 1985 Annual Preventive Care Visit 11/04/2021 11/04/2020 Imm-Hepatitis B (2 of 2 - CpG 2-dose series) 11/29/2022 11/01/2022 Imm-Pneumococcal (2 of 2 - PCV) 11/02/2023 11/01/2022 Diabetes HbA1c 04/03/2024 01/03/2024, 04/10, 11/01/2022, Additional history exists Alcohol and Drug Screen 04/10/2024 10/25/19 24, 04/13/2022, 11/04/2020 Depression Annual Screen 04/10/2024 10/25/2023 Diabetes Foot Exam 04/28/2024 04/28/2023, 0 11/01/2022, 11/01/2022 [id number] ( season) 2024 08/30/2020, 08/09/2020 Postponed from 12/10/2023 (Patient postponement) Dental Prophy 08/28/2024 02/27/2024 Cervical Cancer Screening 09/09/2024 Pap + HPV 09/09/2024 09/11/2023, 06/0 05/2023, 09/08/2022, Additional history exists Imm-Influenza (#1) 2024 02/05/2021 Postponed from 12/10/2023 (Patient postponement) Relationship Safety Screening/Counseling 10/24/2024 10/25/2023, 04/13/2022, 11/04/2020 Retinopathy Screening 12/05/2024 12/06/2023, 023 Diabetes Microalbumin (w/Creatinine) 01/02/2025 01/03/2024, 11/01/2022 Lipid Screening 01/02/2025 01/03/2024, 10/09, 07/20/2022, Additional history exists Serum Creatinine 01/02/2025 01/03/2024, , 07/20/2022, Additional history exists Dental BW 02/24/2025 02/23/2024 Dental Examination 02/24/2025 02/23/2024 Dental Perio Charting 02/28/2025 02/27/2024 Tobacco Screening 04/15/2025 04/15/2024 Hypertension Screening (#1) 05/02/2025 Pap Smear 09/09/2026 09/10/2023, 06/0 04/2022, 02/05/2021, Additional history exists Dental FMX/Pano 02/24/2029 02/23/2024 Imm-DTaP/Tdap/Td (2 - Td or Tdap) 05/31/2031 05/31/2021 HIV Screening Completed 11/05/2020 Hepatitis C Screening Completed 11/05/2020, 021 Cervical Ablation/Cold-Knife Conization Discontinued Cervical Cryotherapy Discontinued Colposcopy Discontinued Endometrial Biopsy Discontinued Excision/Leep Discontinued HPV Genotyping Discontinued Vaginal Pap Discontinued Vulvoscopy Discontinued Procedures Procedure Name Priority Date/Time Associated Diagnosis Comments CASE PRESENTATION SUBS DTL & EXTENSIVE TX PLN Routine 05/02/2024 3:00 PM EST Fracture of crown, enamel, and dentin of tooth with pulp exposure 13 EXTRACTION ERUPTED TOOTH OR EXPOSED ROOT Routine 05/02/2024 3:00 PM EST Fracture of crown, enamel, and dentin of tooth with pulp exposure INTRAORAL - PERIAPICAL FIRST RADIOGRAPHIC IMAGE Routine 05/02/2024 2:00 PM EST Vertical fracture of root of tooth LIMITED ORAL EVALUATION - PROBLEM FOCUSED Routine 05/02/2024 2:00 PM EST Vertical fracture of root of tooth GLUCOSE, BLOOD BY GLUCOSE MONITORING DEVICE (CLIA WAIVED)POCT Routine 04/15/2024 1:30 PM EST Type 2 diabetes mellitus with hyperglycemia, without long-term current use of insulin ([facility]) 31 MACY RESIN-BASED COMPOSITE - TWO SURFACES POSTERIOR Routine 03/28/2024 9:40 AM EST Caries 13 ENDODONTIC THERAPY PREMOLAR TOOTH Routine 03/25/2024 9:00 AM EST Symptomatic periapical periodontitis 2 O RESIN-BASED COMPOSITE - ONE SURFACE POSTERIOR Routine 03/21/2024 9:40 AM EST Caries 7 F(V) RESIN-BASED COMPOSITE ONE SURFACE ANTERIOR Routine 03/21/2024 9:40 AM EST Caries Full ORAL HYGIENE INSTRUCTIONS Routine 02/27/2024 9:00 AM EST Chronic gingivitis, plaque induced Full NUTRITIONAL COUNSELING CONTROL OF DENTAL DISEASE Routine 02/27/2024 9:00 AM EST Chronic gingivitis, plaque induced Full PROPHYLAXIS - ADULT Routine 02/27/2024 9:00 AM EST Chronic gingivitis, plaque induced DENTAL CASE MANAGEMENT - MOTIVATIONAL INTV Routine 02/23/2024 1:00 PM EST Caries Encounter for dental examination CASE PRESENTATION SUBS DTL & EXTENSIVE TX PLN Routine 02/23/2024 1:00 PM EST Encounter for dental examination Caries CARIES RISK ASSESSMENT & DOC FINDING HIGH RISK Routine 02/23/2024 1:00 PM EST Caries Encounter for dental examination Full NUTRITIONAL COUNSELING CONTROL OF DENTAL DISEASE Routine 02/23/2024 1:00 PM EST Caries Encounter for dental examination Full ORAL HYGIENE INSTRUCTIONS Routine 02/23/2024 1:00 PM EST Caries Encounter for dental examination Full INTRAORAL - COMP SERIES OF RADIOGRAPHIC IMAGES Routine 02/23/2024 1:00 PM EST Caries Encounter for dental examination Full COMP ORAL EVALUATION - NEW/ESTABLISHED PATIENT Routine 02/23/2024 1:00 PM EST Caries Encounter for dental examination COMPREHENSIVE METABOLIC PANEL Routine 01/03/2024 11:14 AM EDT Type 2 diabetes mellitus with hyperglycemia, without long-term current use of insulin ([facility]) LIPID PANEL Routine 01/03/2024 11:14 AM EDT Type 2 diabetes mellitus with hyperglycemia, without long-term current use of insulin ([facility]) MICROALBUMIN/CREATINI NE RATIO, URINE, RANDOM Routine 01/03/2024 11:14 AM EDT Type 2 diabetes mellitus with hyperglycemia, without long-term current use of insulin ([facility]) HGBA1C W/MPG Routine 01/03/2024 11:14 AM EDT Type 2 diabetes mellitus with hyperglycemia, without long-term current use of insulin ([facility]) EYE EXAM 12/06/2023 3:00 AM EDT THINPREP IMAGING PAP, HPV MRNA E6/E7 RFLEX HPV 16,18/45 CT/NG Routine 09/10/2023 8:00 PM EDT History of abnormal cervical Pap smear HIV 1/2 AG & AB W/RFLX (4TH GEN) Routine 11/05/2020 9:46 AM EDT Screening for viral disease HEPATITIS C AB W/RFLX HCV RNA, QT, RT PCR Routine 11/05/2020 9:46 AM EDT Encounter for wellness examination in adult from Last 3 Months or Most Recently Relevant to Health Maintenance Results * (ABNORMAL) GLUCOSE, BLOOD BY GLUCOSE MONITORING DEVICE (CLIA WAIVED)POCT (04/15/2024 1:30 PM EST) GLUCOSE 371(A) 70 - 100 mg/dL [facility] POCT Capillary Blood Blood / Unknown 1:30 PM EST us Nash Soares PharmD LAB - BLOOD D RAW Final Result [facility] POCT * (ABNORMAL) HGBA1C W/MPG (01/03/2024 11:14 AM EDT) HEMOGLOBIN A1C 10.2(H) <5.7 % of total Hgb [facility] Comment: For someone without known diabetes, a hemoglobin A1c value of 6.5% or greater indicates that they may have diabetes and this should be confirmed with a follow-up test. For someone with known diabetes, a value <7% indicates that their diabetes is well controlled and a value greater than or equal to 7% indicates suboptimal control. A1c targets should be individualized based on duration of diabetes, age, comorbid conditions, and other considerations. Currently, no consensus exists regarding use of hemoglobin A1c for diagnosis of diabetes for children. ?? MEAN PLASMA GLUCOSE 286 mg/dL (calc) [facility] Blood Blood / Unknown 01/03/2024 1 1:14 AM EDT 01/03/2024 11:15 AM EDT Nash Soares PharmD LAB - BLOOD D RAW Edited Result - Final Performing Organization Address [facility]/ZIP Co de Phone Number [employer] [address] [place] [id number], [facility] [address] [place] [phone] * MICROALBUMIN/CREATININE RATIO, URINE, RANDOM (01/03/2024 11:14 AM EDT) CREATININE, RANDOM URINE 73 20 - 275 mg/dL [facility] MICROALBUMIN 0.4 mg/dL [employer] [employer] Comment: Reference Range Not established MICROALBUMIN/CREA TININE RATIO, RANDOM URINE 5 <30 mg/g creat [facility] Comment: The ADA defines abnormalities in albumin excretion as follows: Albuminuria Category ?Result (mg/g creatinine) Normal to Mildly increased ?? <30 Moderately increased ? 30-299 Severely increased ? > OR = 300 The ADA recommends that at least two of three specimens collected within a 3-6 month period be abnormal before considering a patient to be within a diagnostic category. Urine Urine specimen / Unknown 01/03/2024 11:14 AM EDT 01/03/2024 11:15 AM EDT Nash Soares PharmD LAB - NO BLOO D DRAW Final Result [facility] [address] [address], [employer] [place] [employer] [address] [place] [phone] * (ABNORMAL) LIPID PANEL (01/03/2024 11:14 AM EDT) CHOLESTEROL, TOTAL 230(H) <200 mg/dL [facility] HDL CHOLESTEROL 52 > OR = 50 mg/dL [facility] TRIGLYCERIDES 136 <150 mg/dL [facility] LDL-CHOLESTEROL 152(H) 99 mg/dL (calc) [facility] Comment: Reference range: <100 Desirable range <100 mg/dL for primary prevention; ?? <70 mg/dL for patients with CHD or diabetic patients with > or = 2 CHD risk factors. LDL-C is now calculated using the Fausto-Sanders calculation, which is a validated novel method providing better accuracy than the Friedewald equation in the estimation of LDL-C. Fausto SINGER et al. SJ. 2013;310(19): 3476-7876 (http://education.Qardio/faq/MCD685) CHOL/HDLC RATIO 4.4 <5.0 (calc) [facility] NON-HDL CHOLESTEROL 178(H) <130 mg/dL (calc) [facility] Comment: For patients with diabetes plus 1 major ASCVD risk factor, treating to a non-HDL-C goal of <100 mg/dL (LDL-C of <70 mg/dL) is considered a therapeutic option. Blood Blood / Unknown 01/03/2024 1 1:14 AM EDT 01/03/2024 11:15 AM EDT Nash Soares PharmD LAB - BLOOD D RAW Final Result [facility] [address] [address], [facility] [address] [place] [address] * (ABNORMAL) COMPREHENSIVE METABOLIC PANEL (01/03/2024 11:14 AM EDT) GLUCOSE 339(H) 65 - 99 mg/dL [employer] [facility] Comment: ?Fasting reference interval For someone without known diabetes, a glucose value >125 mg/dL indicates that they may have diabetes and this should be confirmed with a follow-up test. UREA NITROGEN (BUN) 11 7 - 25 mg/dL [facility] CREATININE (blood) 0.75 0.50 - 0.97 mg/dL [facility] EGFR 104 > OR = 60 mL/min/1. 73m2 [facility] BUN/CREATININE RATIO SEE NOTE: [facility] Comment: ?? Not Reported: BUN and Creatinine are within ?? reference range. ? SODIUM 132(L) 135 - 146 mmol/L [facility] POTASSIUM 5.3 3.5 - 5.3 mmol/L [facility] CHLORIDE 99 98 - 110 mmol/L [facility] CARBON DIOXIDE 27 20 - 32 mmol/L [facility] CALCIUM 9.5 8.6 - 10.2 mg/dL [facility] PROTEIN, TOTAL 7.7 6.1 - 8.1 g/dL [facility] ALBUMIN 4.6 3.6 - 5.1 g/dL [facility] GLOBULIN 3.1 1.9 - 3.7 g/dL (calc) [facility] ALBUMIN/GLOBULI N RATIO 1.5 1.0 - 2.5 (calc) [facility] BILIRUBIN, TOTAL 0.4 0.2 - 1.2 mg/dL [facility] ALKALINE PHOSPHATASE 86 31 - 125 U/L [facility] AST 11 10 - 30 U/L [facility] ALT 20 6 - 29 U/L [facility] Blood Blood / Unknown 01/03/2024 1 1:14 AM EDT 01/03/2024 11:15 AM EDT Nash Soares PharmD LAB - BLOOD D RAW Edited Result - Final [facility] [address] [place] [address], EQ works [address] [address] * EYE EXAM (12/06/2023 3:00 AM EDT) 12/06/2023 3:00 AM EDT Chula Turner HOME COMFORT ADVISOR-C OTHER Edited Resul t - Final * THINPREP IMAGING PAP, HPV MRNA E6/E7 RFLEX HPV 16,18/45 CT/NG (09/10/2023 8:00 PM EDT) CHLAMYDIA TRACHOMATIS RNA, TMA NOT DETECTED NOT DETECTED [facility] NEISSERIA GONORRHOEAE RNA, TMA NOT DETECTED NOT DETECTED [facility] COMMENT [facility] CLINICAL INFORMATION See Note [facility] Comment:None given LMP See Note [facility] Comment:NONE GIVEN PREV. PAP See Note [facility] Comment:NONE GIVEN PREV. BX See Note [facility] Comment:NONE GIVEN SOURCE See Note [facility] Comment:Cervix STATEMENT OF ADEQUACY See Note [facility] Comment: Satisfactory for evaluation. Endocervical/transformation zone component present. INTERPRETATION/RESU LT See Note [facility] Comment: Cytology Results: Negative for intraepithelial lesion or malignancy. COMMENT See Note [facility] Comment: This Pap test has been evaluated with computer assisted technology. CORN DETASSELER See Note [facility] [employer] Comment: DOMINGUEZ, CT(ASCP) CT screening location: [address] ??[address] COMMENT [facility] HPV MRNA E6/E7 Not Detected Not Detected [facility] Comment: Methodology: Flame Degreaser-Mediated Amplification This assay detects E6/E7 viral messenger RNA (mRNA) from 14 high-risk HPV types (16,18,31,33,35,39,45,51,52,56,58,59,66,68). Cervical sources are required for HPV testing. If a vaginal source from a patient who has had a total hysterectomy with removal of cervix was submitted, please contact the testing laboratory for alternative testing options. For additional information, please refer to http://XMOS.Cerora/faq/AAD489r3 (This link if provided for information/ educational purposes only.) Swab Cervix uteri structure / Unknown 09/10/2023 8:00 PM EDT 09/12/2023 11:24 AM EDT Narrative [facility] - 09/13/2023 8:31 AM EDT EXPLANATORY NOTE: The Pap is a screening test for cervical cancer. It is not a diagnostic test and is subject to false negative and false positive results. It is most reliable when a satisfactory sample, regularly obtained, is submitted with relevant clinical findings and history, and when the Pap result is evaluated along with historic and current clinical information. The analytical performance characteristics of this assay, when used to test SurePath(TM) specimens have been determined by [employer]. The modifications have not been cleared or approved by the FDA. This assay has been validated pursuant to the CLIA regulations and is used for clinical purposes. For additional information, please refer to https://XMOS.Cerora/faq/LTY304 (This link is being provided for information/ educational purposes only.) Agnieszka Formisano DO LAB - NO BLOOD DRAW Final Resu lt [facility] [address] [place] [address], EQ works [address] [address] * (ABNORMAL) HEPATITIS C AB W/RFLX HCV RNA, QT, RT PCR (11/05/2020 9:46 AM EDT) HEPATITIS C ANTIBODY REACTIVE( A) NON-REACT AYAH [facility] SIGNAL TO CUT-OFF 1.40(H) <1.00 QU [facility] Comment: Based on this result, the sample will be tested for HCV RNA by a Nucleic Acid Amplification Test (NAAT) to determine if the patient has a current active infection. Blood Blood / Unknown 11/05/2020 9 :46 AM EDT 11/05/2020 9:47 AM EDT Narrative [facility] - 11/07/2020 4:25 PM EDT FASTING:YES Chula Turner HOME COMFORT ADVISOR-C LAB - BLOOD DRAW Edited Resu lt - Final [facility] [address] [address], EQ works [employer] [address] [address] * HIV 1/2 AG & AB W/RFLX (4TH GEN) (11/05/2020 9:46 AM EDT) Pathologist [facility] HIV AG/AB, 4TH GEN NON-REAC TIVE NON-REAC TIVE [facility] Comment: HIV-1 antigen and HIV-1/HIV-2 antibodies were not detected. There is no laboratory evidence of HIV infection. PLEASE NOTE: This information has been disclosed to you from records whose confidentiality may be protected by state law. ??If your state requires such protection, then the state law prohibits you from making any further disclosure of the information without the specific written consent of the person to whom it pertains, or as otherwise permitted by law. A general authorization for the release of medical or other information is NOT sufficient for this purpose. ?? For additional information please refer to http://education.Instant BioScan.Comparisim/faq/TWA040 (This link is being provided for informational/ educational purposes only.) The performance of this assay has not been clinically validated in patients less than 2 years old. Blood Blood / Unknown 11/05/2020 9 :46 AM EDT 11/05/2020 9:47 AM EDT Narrative [facility] - 11/07/2020 4:25 PM EDT FASTING:YES Chual Milleradia HOME COMFORT ADVISOR-C LAB - BLOOD DRAW Final Resul t [facility] [address] [address], EQ works [address] [address] from Last 3 Months or Most Recently Relevant to Health Maintenance Insurance [employer] [facility] Member Subscriber Plan / Payer (Ef fective 2023-Present) Name:Anay Garcia Relation to Subscriber:Self Name:Anay Garcia Payer ID:[id number] Type:Indemnity Address: [address] [address] [place] MEDICAID DENTAL FORMERLY [facility], [facility] Care Teams Hood Maker Relationship Specialty Start Date End Date Anjali Dunne PA [address] [place] [address] PCP - General Primary Care 03/20/23
--- OUTSIDE RECORDS SUMMARY | 2024-05-08 13:20 | XMS_ITS | Clinical Summary ---
Author Organization [email or web address] Address [address] [place] [address] Care Team Providers Care Buckshot Swage Operator Name Role Phone Ashvin Alanis MD Primary Care Provider [phone] Social History Tobacco Use Types Packs/Day Years Used Date Smoking Tobacco: Never Assessed Sex and Gender Information Value Date Recorded Sex Assigned at Not on file Gender Identity Not on file Sexual Orientation Not on file Plan of Treatment Health Maintenance Due Date Last Done Comments Diabetes: Annual Foot Exam 1994 Diabetes: Annual Retina Eye Exam 1994 Cervical Cancer Screening: P ap Smear 2005 HIV Screening 03/12/2022 Social Influencers of Health Screening 03/12/2022 Hepatitis B Vaccines (2 of 2 - CpG 2-dose series) 11/29/2022 11/01/2022 COVID-19 Vaccine (2023-2 5 season) 2023 08/30/2020, 08/09/2020 Influenza Vaccine (#1) 2023 02/05/2021 Diabetes: Blood Sugar Contro l Test (HGBA1C) 07/02/2024 01/03/2024 Depression Screening 10/24/2024 10/25/2023 Diabetes: Annual Urine Albumin-Creatinine Ratio (uACR) 01/02/2025 01/03/2024, 11/01/2022 Diabetes: Annual GFR (Glomerular Filtration Rate) 01/02/2025 01/03/2024 Cholesterol Screening (Lipid Panel) 01/02/2029 01/03/2024, 01/03/2024, 11/05/2020 DTaP,Tdap,and Td Vaccines (2 - Td or Tdap) 05/31/2031 05/31/2021 Hepatitis C Screening Completed 11/05/2020 Pneumococcal Vaccine: Pediatrics (0 to 5 Years) and At-Risk Patients (6 to 64 Years) Aged Out 11/01/2022 No longer eligible b ased on patient's age to complete this topic MMR Vaccines Aged Out 11/09/2022 No longer eligi ble based on patient's age to complete this topic HIB Vaccines Aged Out No longer eligi ble based on patient's age to complete this topic HPV Vaccines Aged Out No longer eligi ble based on patient's age to complete this topic Hepatitis A Vaccines Aged Out No long er eligible based on patient's age to complete this topic IPV Vaccines Aged Out No longer eligi ble based on patient's age to complete this topic Meningococcal ACWY Vaccine Aged Out N o longer eligible based on patient's age to complete this topic RSV Immunization Patients Under 20 months Aged Out No longer eligible b ased on patient's age to complete this topic Varicella Vaccines Aged Out No longer eligible based on patient's age to complete this topic Care Teams Buckshot Swage Operator Relationship Specialty Start Date End Date Ashvin Alanis MD [address] [place] [address] PCP - General 10/30/23
--- OUTSIDE RECORDS SUMMARY | 2024-05-08 13:20 | XMS_ITS | Encounter Summary ---
Author Organization [facility] Address [address] [place] [address] Care Team Providers Care Press Bucker Name Role Phone Anjali Dunne Primary Care Provider [phone] Reason for Visit * Reason Comments Dental Pain My tooth fractured a few days ago, and I have a lot of pain Encounter Details Date Type Department Care Team ([facility] st Contact Info) Description 05/02/2024 2:00 PM EST Office Visit [facility] [address] [place] [phone] Sadia Bailey, DMD [address] [place] [address] Vertical fracture of root of tooth (Primary Dx) Social History Tobacco Use Types [...] AM EST documented as of this encounter Last Filed Vital Signs Vital Sign Reading Time Taken Comments Blood Pressure 140/91 05/02/2024 2:21 PM EST Pulse 84 05/02/2024 2:21 PM EST Temperature - - Respiratory Rate - - Oxygen Saturation - - Inhaled Oxygen Concentration - - Weight - - Height - - Body Mass Index - - documented in this encounter Progress Notes * Sadia Chirinos DMD - 05/03/2024 9:27 AM EST Limited Exam Subjective Anay Rocha, 38 year old female, presents alone for limited exam of UL. Supervisor Scrap Preparation: No Chief Complaint Patient presents with Dental Pain My tooth fractured a few days ago, and I have a lot of pain Description of pain: constant Objective RMHx: Yes Vitals: Vitals: 05/02/24 1421 BP: (!) 140/91 Pulse: 84 BP Site: Left Arm BP Position: Sitting BP Cuff Size: Regular Adult Endo Status: Previously treated, Assessment Dx: S02.5XXA Vertical fracture of root of tooth (primary encounter diagnosis) Dx Details (Clinical Decision-Making): Patient presents with vertical fracture MOD, extraction is indicated. Plan Informed Consent/PARQ (Procedure, Alternatives, Risks, Questions): Discussed limited exam findings and treatment needs, questions answered. Patient confirms informed consent, verbalizes understandingof limited exam findings and treatment plan. Pt informed today's exam was a limited exam, and comprehensive exam was not done today. Treatment needs may exist in other areas which were not examined today. Advised patient seek comprehensive care and return for evaluation of other areas as soon as possible. Dental procedures in this visit D0140 - LIMITED ORAL EVALUATION - PROBLEM FOCUSED (Completed) Service provider: Sadia Chirinos DMD Billing provider: Sadia Chirinos DMD D0220 - INTRAORAL - PERIAPICAL FIRST RADIOGRAPHIC IMAGE (Completed) Service provider: Sadia Chirinos DMD Billing provider: Sadia Chirinos DMD Treatment Completed: Limited exam, referral for extraction Referral: No orders of the following type(s) were placed in this encounter: Referral. Rx: No orders of the defined types were placed in this encounter. Behavior: Excellent DA: Glenda NV: Treatment - Restorative documented in this encounter Miscellaneous Notes * Patient Instructions - Sadia Chirinos DMD - 05/02/2024 2:07 PM EST If you are not able to keep your appointment please call 24-48 hours before your appointment to cancel or reschedule. documented in this encounter Plan of Treatment Upcoming Encounters Date Type Department Care Team (Late st Contact Info) Description 05/13/2024 1:40 PM EST Office Visit [facility] [address] [place] [phone] Vno Andres, DDS [address] [place] [address] 05/17/2024 10:40 AM EST Office Visit [facility] [address] [place] [phone] Tim Leos, DDS [address] [place] [address] 05/20/2024 1:20 PM EST Office Visit [address] [phone] Nash Ghosh, PharmD [address] [place] [address] 05/21/2024 1:20 PM EST Office Visit [facility] [address] [place] [address] Jermain Parry, RD [address] [place] [address] 08/30/2024 9:00 AM EDT Office Visit [facility] [address] [place] [phone] [place] [address] documented as of this encounter Procedures Procedure Name Priority Date/Time Associated Diagnosis Comments INTRAORAL - PERIAPICAL FIRST RADIOGRAPHIC IMAGE Routine 05/02/2024 2:00 PM EST Vertical fracture of root of tooth LIMITED ORAL EVALUATION - PROBLEM FOCUSED Routine 05/02/2024 2:00 PM EST Vertical fracture of root of tooth documented in this encounter Visit Diagnoses Diagnosis Vertical fracture of root of tooth- Primary documented in this encounter Additional Health Concerns Assessment Noted Time PHQ-9 Depression Total Score: 0 10/25/19 24 1:11 PM PDT documented as of this encounter Care Teams Press Bucker Relationship Specialty Start Date End Date Anjali Dunne PA [address] [place] [address] PCP - General Primary Care 03/20/23 documented as of this encounter
--- OUTSIDE RECORDS SUMMARY | 2024-05-08 13:20 | XMS_ITS | Encounter Summary ---
Author Organization [facility] Address [address] [place] [address] Care Team Providers Care Cfo Controller Name Role Phone Anjali Dunne Primary Care Provider [phone] Encounter Details Date Type Department Care Team (Late st Contact Info) Description 04/22/2024 11:00 AM EST Office Visit [facility] Main [address] [place] [phone] Jermain Parry [address] [place] [address] Type 2 diabetes mellitus with hyperglycemia, with long-term current use of insulin ([facility]) (Primary Dx) Social History Tobacco Use Types [...] 1 01/03/2024 Safety and Environment Answer Date Irvign rded Safety 1 10/25/2023 Utilities Answer Date [...] Sign Reading Time Taken Comments Blood Pressure - - Pulse - - Temperature - - Respiratory Rate - - Oxygen Saturation - - Inhaled Oxygen Concentration - - Weight 86.6 kg (191 lb) 04/22/2024 11:00 AM EST Height 160 cm (5' 3 ) 04/22/2024 11:00 AM EST Body Mass Index 33.83 04/22/2024 11:00 AM EST documented in this encounter Progress Notes * Jermain Parry RD - 04/22/2024 11:00 AM EST SUBJECTIVE: Anay is a 38 year old female who presents for follow up of diabetes. She reports the following: home blood sugars are performed regularly. Interval History: diet adherence: adherent most of the time, medication adherence: adherent all of the time, and physical activity: does not exercise at all Medical and social history: Reviewed and no changes OBJECTIVE: Ht 5' 3 (1.6 m) Wt 191 lb (86.6 kg) LMP 03/23/2024 (Exact Date) BMI 33.83 kg/m?? OB StatusHaving periods Smoking Status Never BSA 1.96 m?? General Appearance: alert, no apparent distress ASSESSMENT & PLAN: B/13 270 04/21 240 24 hour recall: Boiled green banana, boiled egg and cheese, coffee with milk 1 tsp sugar Rice with stewed chicken,lettuce, peppers, water 2 small Boiled potato with boiled chicken Counseled patient on importance of keeping within the food budget and how what is eaten, when andhow much will affect the blood sugars. Hydrating well with water throughout the day also encouragedas well as allocating specific time for increased activity. Explained effects of exercise on blood sugars. Topics discussed: continue current medications, diabetic diet , medications, side effects and compliance , use and side effects of insulin, and glycohemoglobin and other lab monitoring. Patient understands and agrees with the plan of care. 15 min's documented in this encounter Plan of Treatment Upcoming Encounters Date Type Department Care Team (Late st Contact Info) Description 05/13/2024 1:40 PM EST Office Visit [address] [phone] Von Andres, DDS [address] [place] [address] 05/17/2024 10:40 AM EST Office Visit [facility] Dental [address] [place] [phone] Tim Leos, DDS [address] [place] [address] 05/20/2024 1:20 PM EST Office Visit [address] [phone] Nash Ghosh, PharmD [address] [place] [address] 05/21/2024 1:20 PM EST Office Visit [facility] [place] [phone] Jermain Parry, RD [address] [place] [address] 08/30/2024 9:00 AM EDT Office Visit [facility] St Dental [address] [place] [phone] Zorna Castro, RDH [address] [place] [address] documented as of this encounter Visit Diagnoses Diagnosis Type 2 diabetes mellitus with hyperglycemia, with long-term current use of insulin ([facility])- Primary documented in this encounter Additional Health Concerns Assessment Noted Time PHQ-9 Depression Total Score: 0 10/25/19 24 1:11 PM PDT documented as of this encounter Care Teams Cfo Controller Relationship Specialty Start Date End Date Anjali Dunne PA [address] [place] [address] PCP - General Primary Care 03/20/23 documented as of this encounter
== END 2024-05-08 11:11 | disposition home or self-care (01) ==
PROVIDERS: PCP Student in an Organized Health Care Education/Training Program; Visit Provider Internal Medicine
DX: M53.3 Sacrococcygeal disorders, not elsewhere classified (principal)
CPT/HCPCS: 99212